=== PATIENT | female | born 1975 | race Caucasian/White ===

== ENCOUNTER 2024-08-18 08:33 | Emergency (ER) | payer OTHER ==
--- OUTSIDE RECORDS SUMMARY | 2024-08-18 08:37 | XMS REPORT | Continuity of Care Document ---
Author Name Unknown Address [address] [place] [address] thconnect Address [address] [place] [address] [address] [place] [address] Care Team Providers Care General Manager Farm Name Role Phone MARCIE Attending Clinician Brian JACK Admitting Clinician Brian ble Payers Payer Name Policy Type Policy Number Effective Date Expirati on Date Source [facility] (MEDICARE REPLACEMENT/ADVANTAGE - PPO) [id number] [facility] (MEDICARE REPLACEMENT/ADVANTAGE - PPO) [id number] Allergies, Adverse Reactions, Alerts Allergy Name Allergy Type Status Severity Reaction(s) Onset Date Inactive Date Treating Clinician Comments Source P[facility] INS Allergy to substanc e Active [facility] Social History Smoking Status Start Date Stop Date Source Smoker, Current Status Unknown [facility] Medications Ordered Medication Name Filled Medication Name Start Date Stop Date Current Medication? Ordering Clinician Indication Dosage Frequency Signature (SIG) Comments Components Source buspirone 15 mg tablet buspirone 15 mg tablet No buspirone 15 mg tablet [facility] gabapentin 300 mg capsule gabapentin 300 mg capsule No gabapentin 300 mg capsule [facility] ibuprofen ibuprofen No ibuprofen [facility] levothyroxi ne 200 mcg tablet levothyroxi ne 200 mcg tablet No levothyrox ine 200 mcg tablet [facility] levothyroxi ne 25 mcg tablet levothyroxi ne 25 mcg tablet No levothyrox ine 25 mcg tablet [facility] Linzess 290 mcg capsule Linzess 290 mcg capsule No Linzess 290 mcg capsule [facility] lurasidone 20 mg tablet lurasidone 20 mg tablet No lurasidone 20 mg tablet [facility] quetiapine 300 mg tablet quetiapine 300 mg tablet No quetiapine 300 mg tablet [facility] Vital Signs Vital Name Observation Time Observation Value Comments S ource BP Diastolic 2023-12-21 00:00:00 71 mm[Hg] [facility] Body Weight 2023-12-21 00:00:00 278 [lb_av] [facility] BP Systolic 2023-12-21 00:00:00 110 mm[Hg] [facility] BMI (Body Mass Index) 2023-12-21 00:00:00 42.3 kg/m2 [facility] Height 2023-12-21 00:00:00 68 [in_i] [facility] Procedures Procedure Date / Time Performed Performing Clinicia n Source Breast Surgery [facility] Ne[facility] Gallbladder Surgery [facility] Encounters Start Date/Time End Date/Time Encounter Type Admission Type Attending Clinicians Care Facility Care Department Encounter ID Source 2023-12-21 00:00:00 2023-12-21 00:00:00 Outpatient JACKI ARCHER AO AO [id number] [facility] 2023-12-21 00:00:00 2023-12-21 00:00:00 Cecile Mathews, HR REPRESENTATIVE: [address] [place] [id number] , Ph. AO [place] - [facility] Stephan - [facility] [place]_Of[facility]_Spin e Level [id number] [facility] 2023-12-16 00:00:00 2023-12-16 00:00:00 Outpatient JACKI ARCHER AO AO [id number] [facility] 2023-12-07 00:00:00 2023-12-07 00:00:00 Outpatient JACKI ARCHER AOSM AO [id number] [facility] 2023-12-02 00:00:00 2023-12-02 00:00:00 Outpatient [facility] [id number] [facility] 2023-12-01 00:00:00 2023-12-01 00:00:00 Outpatient BIMALNATHANIEL ARCHER [facility] [id number] [facility]
--- NOTE | 2024-08-18 09:58 | RAD REPORT ---
EXAMINATION: XR LEFT KNEE CLINICAL INDICATION: PAIN TECHNIQUE: Multiple projections of the left knee were obtained. COMPARISON: No prior exam. FINDINGS: Tricompartmental osteoarthritis is present greatest in the lateral compartment. Small xavi nal osteophytes present. No fracture, dislocation or joint effusion.
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
--- NOTE | 2024-08-18 11:12 | ER ---
Nurse's Notes [facility] Name: Chica Riley Age: 49 yrs Sex: Female : 1975 Arrival Date: 08/18/2024 Time: 08:33 Bed 14 Private MD: Diagnosis: Osteoarthritis of knee, unspecified;Pain in left knee Presentation: 08/18 08:42 Chief complaint: Patient states: L knee pain started yesterday. No falls or trauma. ll1 Coronavirus screen: Client denies travel out of the [place] in the last 14 days. At this time, the client does not indicate any symptoms associated with coronavirus-19. Ebola Screen: Patient denies travel to an Ebola-affected area in the 21 days before illness onset. Initial Sepsis Screen: Does the patient meet any 2 criteria? No. Patient's initial sepsis screen is negative. Does the patient have a suspected source of infection? No. Patient's initial sepsis screen is negative. Risk Assessment: Do you want to hurt yourself or someone else? Patient reports no desire to harm self or others. Onset of symptoms was August 17, 2024. 08:42 Method Of Arrival: Wheelchair ll1 08:42 Acuity: GEMMA 4 ll1 Triage Assessment: 08:42 General: Appears uncomfortable, Behavior is calm, cooperative, appropriate for age. ll1 Pain: Complains of pain in L knee. Musculoskeletal: Reports pain in L knee. Historical: - Allergies: 08:41 PENICILLINS; ll1 - PMHx: 08:41 cancer x 3; Lupus erythematosus; Hypothyroidism; Hypertensive disorder; ll1 - PSHx: 08:41 Cholecystectomy; Tonsillectomy; ll1 - Immunization history:: Adult Immunizations up to date. - Infectious Disease History:: Denies. - Social history:: Smoking status: Reported history of juuling and/or vaping. Screenin:24 [facility] ED Fall Risk Assessment (Adult) History of falling in the last 3 months, db including since admission No falls in past 3 months (0 pts) Confusion or Disorientation No (0 pts) Intoxicated or Sedated No (0 pts) Impaired Gait No (0 pts) Mobility Assist Device Used No (0 pt) Altered Elimination No (0 pt) Score/Fall Risk Level 0 - 2 = Low Risk Oriented to surroundings, Maintained a safe environment. Abuse screen: Denies threats or abuse. Denies injuries from another. Nutritional screening: No deficits noted. Tuberculosis screening: No symptoms or risk factors identified. Assessment: 09:24 Reassessment: Patient appears in no apparent distress at this time. Patient and/or db family updated on plan of care and expected duration. Pain level reassessed. Patient is alert, oriented x 3, equal unlabored respirations, skin warm/dry/pink. General: Appears in no apparent distress. comfortable, Behavior is calm, cooperative. Neuro: Level of Consciousness is awake, alert, obeys commands, Oriented to person, place, time, situation. Respiratory: Airway is patent Respiratory effort is even, unlabored, Respiratory pattern is regular, symmetrical. 11:36 Reassessment: Patient appears in no apparent distress at this time. Patient and/or ph family updated on plan of care and expected duration. Pain level reassessed. Patient is alert, oriented x 3, equal unlabored respirations, skin warm/dry/pink. Vital Signs: 08:42 BP 117 / 94; Pulse 74; Resp 17; Temp 97.5; Pulse Ox 95% ; Weight 124.74 kg; Height 5 ll1 ft. 8 in. ; Pain 10/10; 11:36 BP 119 / 78; Pulse 72; Resp 18; Temp 98; Pulse Ox 96% on R/A; ph 08:42 Body Mass Index 41.81 (124.74 kg, 172.72 cm) ll1 08:42 Pain Scale: Adult ll1 ED Course: 08:36 Patient arrived in ED. mr 08:38 Arm band placed on. ll1 08:43 Triage completed. ll1 08:43 Kun Paez DO is Attending Physician. ms3 09:02 Alyse Lechuga, RN is Primary Nurse. db 09:50 Knee Left 3 View XRAY In Process Unspecified. EDMS 11:00 Patient has correct armband on for positive identification. Call light in reach. Side ph rails up X 1. Pulse ox on. NIBP on. 11:10 Gurpreet Poole MD is Referral Physician. ms3 11:36 No provider procedures requiring assistance completed. Patient did not have IV access ph during this emergency room visit. 11:38 Crutch training done. ph Administered Medications: No medications were administered Medication: 09:24 VIS not applicable for this client. db Outcome: 11:12 Discharge ordered by . ms3 11:36 Discharged to home ambulatory, with crutches, with family, ph 11:36 Condition: good 11:36 Discharge instructions given to patient, Instructed on discharge instructions, follow up and referral plans. Demonstrated understanding of instructions, follow-up care, 11:38 Patient left the ED. Signatures: Dispatcher [employer] EDMS Jannette Swift, Reg Reg mr Lindsey Moore, RN RN Ashley Edouard RN RN [facility], Wolfgang, PANTERA RN [facility] Kun Paez, DO ms3 Alyse Lechuga, RN RN db
[2024-08-18 11:44] VITALS: BP 119/78; TEMP 98; O2SAT 96
== END 2024-08-18 11:38 | disposition home or self-care (01) ==
LOC: ER 08:33
DX: M17.12 Unilateral primary osteoarthritis, left knee (principal)
CPT/HCPCS: 99283